=== PATIENT | male | born 1960 | race Caucasian/White ===

== ENCOUNTER 2019-02-11 18:08 | Emergency (ER) | payer OTHER ==
[2019-02-11 18:18] VITALS: BP 125/67; PULSE 67; TEMP 98.1; BMI 22.3
--- NOTE | 2019-02-11 18:18 | PDOC ---
Rapid Medical Evaluation Chief Complaint: Chest Pain Time Seen by Provider: 02/11/19 18:14 Medical Evaluation: 02/11/19 18:16 I have performed a brief in-person evaluation of this patient. The patient presents with a chief complaint of: chest pressure and irregular Heartrate, states stopped taking seraquel and Effexor 2 weeks ago. " ijust want to know if I am having a heart attack" - scheduled for Barium Swallow tomorrow Pertinent physical exam findings: anxious, talkative, I have ordered the following: EKG The patient will proceed to the ED for further evaluation. 02/11/19 18:17 02/11/19 18:18 Discharge Disposition - Diagnosis Chest pain - Discharge Dispostion Condition at time of disposition: Stable - Referrals - Patient Instructions - Post Discharge Activity
[2019-02-11 19:10] LABS: BASO % 1.2 % (0-2.0); EOS % 2.1 % (0-4.5); HEMATOCRIT 38.1 % (35.4-49); HEMOGLOBIN 12.7 GM/dL (11.7-16.9); LYMPH % 22.2 % (8-40); MCH 30.2 pg (25.7-33.7); MCHC 33.3 g/dl (32.0-35.9); MEAN CELL VOLUME 90.7 fl (80-96); MEAN PLT VOLUME 7.3 fl (7.5-11.1); MONO % 7.8 % (3.8-10.2); NEUT % 66.7 % (42.8-82.8); PLATELET COUNT 281 K/MM3 (134-434); RDW 12.9 % (11.9-15.9); WHITE BLOOD COUNT 5.9 K/mm3 (4.0-10.0)
[2019-02-11 19:25] LABS: INR 0.97 (0.83-1.09); PROTHROMBIN TIME (PATIENT) 11.5 SEC (9.7-13.0)
[2019-02-11 19:35] LABS: ALBUMIN 4.2 g/dl (3.4-5.0); BILIRUBIN,TOTAL 0.4 mg/dL (0.2-1); BLOOD UREA NITROGEN 17.3 mg/dL (7-18); CALCIUM 9.6 mg/dL (8.5-10.1); CREATININE 0.9 mg/dL (0.55-1.3); POTASSIUM 4.3 mmol/L (3.5-5.1)
--- NOTE | 2019-02-11 20:09 | PDOC ---
History of Present Illness - General Chief Complaint: Chest Pain Stated Complaint: SENT BY PCP Time Seen by Provider: 02/11/19 18:14 - History of Present Illness Initial Comments: Samuel Sanchez is a 58yo man with a PMH of hiatal hernia, severe GERD symptoms, and anxiety who presents with left chest pain that started this afternoon. he states that he is scheduled for a barium swallow tomorrow and was at his PMD's office this afternoon, where he was told that he was "fine." He walked out to the car and took a drink of soda, and he noticed a pain on his left inferior lateral chest when he moved his arm forward. He says that the pain is "0.6/10" and occurs when he brings his left arm laterally to over to the far right. He describes it as feeling "like a bruise." Mr Sanchez says that he ran back into his PMD's office and had an EKG done, which was reportedly unchanged from previously. He is very concerned that he is having a heart attack, and his PMD sent him to the ED for additional evaluation. His PMD, Dr Medrano, called the ER prior to the pt's arrival and requested that two trops be sent. He is comfortable with the patient being discharged home if his workup is negative. He will fax previous EKG's for comparison and reports that the EKG. Past History - Past Medical History Allergies/Adverse Reactions: Allergies Allergy/AdvReac Type Severity Reaction Status Date / Time No Known Allergies Allergy Verified 02/11/19 20:51 Home Medications: Ambulatory Orders Alprazolam [Xanax] 1 mg PO DAILY 02/11/19 Nicotine Patch [Nicoderm Patch -] 1 patch TD DAILY 02/11/19 Oxycodone HCl [Oxycodone HCl ER] 20 mg PO DAILY 02/11/19 Pantoprazole Sodium [Protonix] 40 mg PO BID 02/11/19 Valacyclovir HCl [Valtrex] 500 mg PO DAILY 02/11/19 COPD: No Psychiatric Problems: Yes Other medical history: ACID REFLUX, ?HIATAL HERNIA - Surgical History Abdominal Surgery: Yes Appendectomy: Yes - Immunization History Immunization Up to Date: No - Suicide/Smoking/Psychosocial Hx Smoking History: Never smoked Have you smoked in the past 12 months: Yes Information on smoking cessation initiated: No Hx Alcohol Use: No Drug/Substance Use Hx: No Review of Systems - Review of Systems Comments:: General: No fevers, no chills, no weight or appetite change, no malaise HEENT: No changes in vision, no changes in hearing, no congestion, no sore throat CV: No chest pain, no palpitations, no LE edema Pulm: No SOB, no cough, no wheezing GI: Frequent nausea/vomiting, no change in bowel habits, no melena : No frequency, no urgency, no dysuria Musc: No back pain, no joint swelling, no recent injury Skin: No rash, no lesions, no erythema Endo: No excessive thirst, no heat/cold intolerance Heme: No unusual bruising or bleeding, no swollen glands Neuro: No syncope, no numbness/tingling, no focal weakness Vasc: No claudication Psych: No recent change in mood, no SI or HI. Significant anxiety *Physical Exam - Vital Signs Last Vital Signs Temp Pulse Resp BP Pulse Ox 98.1 F 67 16 125/67 99 02/11/19 18:15 02/11/19 18:15 02/11/19 18:15 02/11/19 18:15 02/11/19 18:15 - Physical Exam Comments: General: In no acute distress HEENT: PERRL, EOMI, MMM, voice normal Cards: RRR, no murmur appreciated. No reproducible chest wall pain Pulm: Comfortable on room air, clear to auscultation bilaterally Abd: Soft, nontender, nondistended Ext: Atraumatic. No LE edema. ROM intact Vasc: Extremities WWP Skin: Normal color, no rashes or lesions Neuro: A&Ox3, CN grossly intact, normal speech, motor/sensory grossly intact and symmetric Psych: Extremely anxious, tearful Heart Score/ECG Review - History History: Slightly suspicious - Electrocardiogram EKG: Non specific repolarization disturbance - Age Age: 45-65 - Risk Factors Risk Factors Heart Score: Yes Smoking History Based on the list above the patient has:: 1-2 risk factors - Troponin Troponin: </= normal limit - Score Heart Score - Total: 3 - ECG Intrepretation Rhythm: Regular Rhythm - [place]: Normal - [place] Atrial Enlargement: Left Prominent R with upright T in V1 (true posterior SD): No Delta Wave(s) Present: No - QRS Increased Voltage: Precordial Leads Poor R Wave Progression: No Q Wave Present: No - ECG Impressions Normal ECG: No Bradycardia: Yes Tachycardia: Sinus ED Treatment Course - LABORATORY CBC & Chemistry Diagram: 02/11/19 19:00 02/11/19 19:00 - ADDITIONAL ORDERS Additional order review: Laboratory Results 02/11/19 02/11/19 19:00 19:00 PT with INR 11.50 INR 0.97 Sodium 139 Potassium 4.3 Chloride 106 Carbon Dioxide 29 Anion Gap 5 L BUN 17.3 Creatinine 0.9 Est GFR (CKD-EPI)AfAm 107.97 Est GFR (CKD-EPI)NonAf 93.16 Random Glucose 99 Calcium 9.6 Magnesium 2.0 Total Bilirubin 0.4 AST 43 H ALT 59 Alkaline Phosphatase 39 L Creatine Kinase 546 H Troponin I 0.04 Total Protein 7.0 Albumin 4.2 Lipase 106 02/11/19 19:00 RBC 4.20 MCV 90.7 MCHC 33.3 RDW 12.9 MPV 7.3 L Neutrophils % 66.7 Lymphocytes % 22.2 Monocytes % 7.8 Eosinophils % 2.1 Basophils % 1.2 Medical Decision Making - Medical Decision Making 02/11/19 19:54 Samuel Sanchez is a 58yo man with a PMH of hiatal hernia, severe GERD symptoms, and anxiety who presents with nonspecific left lateral chest pain that started this afternoon. He was noted to have EKG changes today; his PMD sent previous EKG's for comparison - Low suspicion for ACS from pt's description of pain, however, EKGs from today as well as faxed EKG from 2011 and 2015 reviewed. All show sinus bradycardia, normal axis, normal intervals with LVH, t-wave inversions in lateral leads. - PMD called by Dr Hahn. Pt has never had a cardiology workup. Cause of EKG changes are unknown - Initial trop sent in RME. CBC, CMP without concerning changes. Trop 0.04 - Plan to call cardiology for recs, may need admission for echo and stress test 02/11/19 21:08 - Discussed EKG's with Dr Worthington, who reviewed the EKG from 2012 and today. She states that the changes are most likely LVH with repolarization abnormalities and that the pt can be seen in clinic - Updated pt regarding results, conversation w/ cardiology. Discussion held with the pt, myself, and Dr Doan. Recommended that he stay in the hospital so that he can be seen by cardiology and likely complete additional testing. Following a lengthy discussion, Mr Sanchez feels that he would rather follow up in clinic. Advised that admission is recommended, and he understands the reasons and risks of going home now, especially as repeat trop has not been sent. Will sign AMA paperwork. Seen with Dr Doan. Donna William PGY2 *DC/Admit/Observation/Transfer Diagnosis at time of Disposition: Chest pain Qualifiers: Chest pain type: unspecified Qualified Code(s): R07.9 - Chest pain, unspecified - Discharge Dispostion Disposition: AGAINST MEDICAL ADVICE Condition at time of disposition: Stable - Referrals Referrals: Pankaj Medrano MD [Primary Care Provider] - Quincy Castellon MD [Staff Physician] - Aide Worthington MD [Staff Physician] - - Patient Instructions Printed Discharge Instructions: DI for Chest Pain Additional Instructions: Discharge Instructions: You were seen in the emergency department with chest pain. Your blood tests were not concerning, but you were found to have changes on your EKG. These changes have never been evaluated by a dust handler. It was recommended that you stay in the hospital for additional testing, but following discussion with the team you declined. Your EKG was discussed with a dust handler. Please call tomorrow morning to schedule an appointment with Dr Castellon or Dr Worthington. You should be seen as soon as possible, ideally tomorrow or Saturday. Do not exercise or lift heavy objects until you are evaluated. Seek immediate care if you have any worsening symptoms, persistent chest pain, difficulty breathing, sweating along with the pain, the pain occurs with exercise, you feel lightheaded, or you have any other medical emergency. - Post Discharge Activity
--- NOTE | 2019-02-11 22:34 | PDOC ---
Documentation entered by Noel Nesbitt SCRIBE, acting as scribe for Rafaela Doan DO. Rafaela Doan DO: This documentation has been prepared by the Laz patel Daniel, SCRIBE, under my direction and personally reviewed by me in its entirety. I confirm that the documentation accurately reflects all work , treatment, procedures, and medical decision making performed by me. Attending Attestation - Resident Resident Name: TabmonikaDonna - ED Attending Attestation I have performed the following: I have examined & evaluated the patient, The case was reviewed & discussed with the resident, I agree w/resident's findings & plan - HPI HPI: 02/11/19 19:58 The patient is a 58 year old male with a past medical history of hiatal hernia, anxiety, and severe GERD here today for evaluation of chest tightness. The patient reports that he saw his PCP today and began to feel chest tightness as he left. He reports that his pain is left sided, sharp, and intermittent. Patient denies headache, lightheadedness. Denies fever, chills. Denies shortness of breath. Denies nausea, vomiting, diarrhea, abdominal pain. PCP: Pankaj Medrano - Physicial Exam PE: 02/11/19 19:59 Agree with resident's physical exam. - Medical Decision Making 02/11/19 22:32 58-year-old male with intermittent chest pains sent by PMD for further evaluation EKG shows extensive and concerning ST segment abnormalities as well as deep T- wave inversions in leads V1 through V4 Largely unchanged from previous stating back to 2011 Patient states he has not been fully evaluated by a sales contractor but believes he has a heart murmur He has been advised stay for serial enzymes and further evaluation which she refuses Case was discussed with cardiology who recommends short-term follow-up Patient will be signing out AGAINST MEDICAL ADVICE, he was specifically made aware that his evaluation was not completed and he is at risk for sudden . He was advised to avoid heavy exercise as well. Patient verbalized understanding. He was alert and oriented 4 able to communicate prior to leaving the emergency department.
--- NOTE | 2019-02-12 15:19 | EKG ---
Test Reason : Blood Pressure : / mmHG Vent. Rate : 054 BPM Atrial Rate : 054 BPM P-R Int : 166 ms QRS Dur : 100 ms QT Int : 448 ms P-R-T Axes : 071 075 007 degrees QTc Int : 424 ms SINUS BRADYCARDIA POSSIBLE LEFT ATRIAL ENLARGEMENT LEFT VENTRICULAR HYPERTROPHY ABNORMAL ECG NO PREVIOUS ECGS AVAILABLE Confirmed by NILAY CUEVA, ZULEIMA ([id number]) on 02/12/2019 3:19:11 PM Referred By: Confirmed By:ZULEIMA PEMBERTON MD
== END 2019-02-11 21:43 | disposition left against medical advice (07) ==
LOC: JER 18:08
DX: R07.9 Chest pain, unspecified (principal); K21.9 Gastro-esophageal reflux disease without esophagitis; F41.9 Anxiety disorder, unspecified
CPT/HCPCS: 36415; 71045-TC-FY; 80053; 82550; 82553; 83690; 83735; 84484; 85025; 85610; 93005; 93010; 99284-25

== ENCOUNTER 2020-09-28 15:14 | Emergency (ER) | payer OTHER ==
[2020-09-28 15:20] VITALS: BP 132/80; PULSE 57; TEMP 98; BMI 21.6
== END 2020-09-28 16:17 | disposition home or self-care (01) ==
LOC: JERFT 15:14
DX: F41.9 Anxiety disorder, unspecified (principal)
CPT/HCPCS: 99283-25

== ENCOUNTER 2020-10-06 17:02 | Emergency (ER) | payer OTHER ==
[2020-10-06 17:09] VITALS: BP 122/64; PULSE 60; TEMP 98; BMI 19.5
[2020-10-06] MEDS ORDERED: LIDOCAINE VISCOUS 2% ORAL/TOP 20 ML UNIT-DOSE CUP MM ONE (17:41)
[2020-10-06] MEDS ORDERED: LIDOCAINE VISCOUS 2% ORAL/TOP 20 ML UNIT-DOSE CUP ONE (17:46)
== END 2020-10-06 18:45 | disposition home or self-care (01) ==
LOC: JER 17:02
DX: R13.10 Dysphagia, unspecified (principal)
CPT/HCPCS: 70360-TC-FY; 99283-25

== ENCOUNTER 2020-10-20 14:07 | Emergency (ER) | payer OTHER ==
[2020-10-20] MEDS ORDERED: IBUPROFEN 600 MG TABLET (FP) PO ONE ×2 (14:25→14:44)
[2020-10-20 14:33] VITALS: BP 144/82; PULSE 110; TEMP 98.6; BMI 20.9
== END 2020-10-20 15:03 | disposition home or self-care (01) ==
LOC: JER 14:07
DX: R50.83 Postvaccination fever (principal)
CPT/HCPCS: 99283-25

== ENCOUNTER 2020-10-22 15:51 | Emergency (ER) | payer OTHER ==
[2020-10-22 16:02] VITALS: BP 143/75; PULSE 66; TEMP 98.1; BMI 20.9
== END 2020-10-22 17:20 | disposition home or self-care (01) ==
LOC: JER 15:51 → JERFT 15:51
DX: R50.9 Fever, unspecified (principal)
CPT/HCPCS: 99282-25

== ENCOUNTER 2020-10-30 11:23 | Emergency (ER) | payer OTHER ==
[2020-10-30 11:59] VITALS: BP 117/71; PULSE 70; TEMP 98.1; BMI 20.9
== END 2020-10-30 12:23 | disposition home or self-care (01) ==
LOC: JER 11:23
DX: R06.02 Shortness of breath (principal)
CPT/HCPCS: 99283-25

== ENCOUNTER 2020-10-31 14:11 | Emergency (ER) | payer OTHER ==
[2020-10-31 14:30] VITALS: BP 115/73; PULSE 74; TEMP 98.5; BMI 20.9
== END 2020-10-31 15:24 | disposition home or self-care (01) ==
LOC: JERFT 14:11 → JER 14:11
DX: F41.9 Anxiety disorder, unspecified (principal)
CPT/HCPCS: 99282-25

== ENCOUNTER 2020-11-01 13:53 | Emergency (ER) | payer OTHER ==
[2020-11-01 14:08] VITALS: BP 128/85; PULSE 59; TEMP 98.2; BMI 20.9
== END 2020-11-01 14:44 | disposition home or self-care (01) ==
LOC: JERFT 13:53
DX: F41.9 Anxiety disorder, unspecified (principal)
CPT/HCPCS: 99283-25

== ENCOUNTER 2020-11-02 22:07 | Emergency (ER) | payer OTHER ==
[2020-11-02 22:17] VITALS: BP 143/86; PULSE 76; TEMP 97.9; BMI 20.9
== END 2020-11-02 22:30 | disposition home or self-care (01) ==
LOC: JER 22:07
DX: T25.121A Burn of first degree of right foot, initial encounter (principal)
CPT/HCPCS: 99284-25

== ENCOUNTER 2020-11-09 14:40 | Emergency (ER) | payer OTHER ==
[2020-11-09 15:11] VITALS: BP 133/78; PULSE 54; TEMP 98.3; BMI 22.0
[2020-11-09] MEDS ORDERED: BACITRACIN 15 GM TUBE TOPICAL OINTMENT ONE (15:15)
== END 2020-11-09 16:50 | disposition home or self-care (01) ==
LOC: JERFT 14:40
DX: T25.122A Burn of first degree of left foot, initial encounter (principal)
CPT/HCPCS: 99283-25

== ENCOUNTER 2020-12-10 16:17 | Emergency (ER) | payer OTHER ==
[2020-12-10 16:29] VITALS: BP 139/78; PULSE 64; BMI 20.7
== END 2020-12-10 17:37 | disposition home or self-care (01) ==
LOC: JERFT 16:17
DX: R06.02 Shortness of breath (principal); F41.9 Anxiety disorder, unspecified
CPT/HCPCS: 71046-TC-FY; 99283-25

== ENCOUNTER 2020-12-11 13:01 | Emergency (ER) | payer OTHER ==
[2020-12-11 13:12] VITALS: BP 128/72; PULSE 75; TEMP 98.1; BMI 20.9
[2020-12-11] MEDS ORDERED: ALBUTEROL SO4 HFA INHALER IH ONE ×2 (13:58→13:59)
== END 2020-12-11 14:57 | disposition home or self-care (01) ==
LOC: JERFT 13:01
PROC: 3E0F7GC Introduction of Other Therapeutic Substance into Respiratory Tract, Via Natural or Artificial Opening (ICD-10-PCS; principal; 2020-12-11)
DX: F41.9 Anxiety disorder, unspecified (principal); R06.02 Shortness of breath
CPT/HCPCS: 99284-25

== ENCOUNTER 2020-12-14 14:32 | Emergency (ER) | payer OTHER ==
[2020-12-14 15:02] VITALS: BP 144/87; PULSE 72; TEMP 98.1; BMI 21.6
== END 2020-12-14 15:55 | disposition home or self-care (01) ==
LOC: JERFT 14:32
DX: R05 Cough (principal); R06.02 Shortness of breath; F41.9 Anxiety disorder, unspecified
CPT/HCPCS: 99281-25

== ENCOUNTER 2021-01-15 15:42 | Emergency (ER) | payer OTHER ==
[2021-01-15 16:05] VITALS: BP 130/78; PULSE 74; TEMP 98.2; BMI 21.6
[2021-01-15] MEDS ORDERED: POLYETHYLENE GLYCOL 3350 119 GM BTL PO ONE (16:50)
[2021-01-15] MEDS ORDERED: LACTULOSE 20 GM/30 ML UDC (FOR ORAL USE ONLY) PO ONE (16:50)
[2021-01-15] MEDS ORDERED: LACTULOSE 20 GM/30 ML UDC (FOR ORAL USE ONLY) ONE (16:51)
== END 2021-01-15 18:26 | disposition home or self-care (01) ==
LOC: JER 15:42
DX: K59.00 Constipation, unspecified (principal)
CPT/HCPCS: 74019-TC-FY; 99283-25

== ENCOUNTER 2021-03-03 14:45 | Emergency (ER) | payer OTHER ==
[2021-03-03 15:07] VITALS: BP 148/74; PULSE 69; TEMP 98.3; BMI 21.6
== END 2021-03-03 15:59 | disposition home or self-care (01) ==
LOC: JERFT 14:45 → JER 14:45 → JERFT 15:59
DX: F41.9 Anxiety disorder, unspecified (principal); R06.02 Shortness of breath
CPT/HCPCS: 71046-TC-FY; 99283-25

== ENCOUNTER 2021-03-12 22:31 | Emergency (ER) | payer OTHER ==
[2021-03-12 22:43] VITALS: BP 130/82; PULSE 68; TEMP 98.1; BMI 21.6
== END 2021-03-12 23:27 | disposition home or self-care (01) ==
LOC: JER 22:31
DX: F41.9 Anxiety disorder, unspecified (principal)
CPT/HCPCS: 99281-25

== ENCOUNTER 2021-04-03 14:02 | Emergency (ER) | payer OTHER ==
[2021-04-03 14:23] VITALS: BP 142/58; PULSE 81; TEMP 98.2; BMI 21.6
[2021-04-03] MEDS ORDERED: LIDOCAINE 5% TOPICAL PATCH TP ONE (15:57)
[2021-04-03] MEDS ORDERED: LIDOCAINE 5% TOPICAL PATCH ONE (15:58)
== END 2021-04-03 16:01 | disposition home or self-care (01) ==
LOC: JERFT 14:02
DX: S06.0X0A Concussion without loss of consciousness, initial encounter (principal); W22.8XXA Striking against or struck by other objects, initial encounter; Y92.9 Unspecified place or not applicable
CPT/HCPCS: 70450-TC; 72125-TC; 99284-25

== ENCOUNTER 2021-04-21 22:41 | Emergency (ER) | payer OTHER ==
[2021-04-21 22:46] VITALS: BP 151/87; PULSE 95; TEMP 98; BMI 21.6
== END 2021-04-21 23:43 | disposition home or self-care (01) ==
LOC: JERFT 22:41
DX: T25.021A Burn of unspecified degree of right foot, initial encounter (principal); S91.331A Puncture wound without foreign body, right foot, initial encounter; X11.8XXA Contact with other hot tap-water, initial encounter; W25.XXXA Contact with sharp glass, initial encounter
CPT/HCPCS: 99281-25

== ENCOUNTER 2021-05-04 13:51 | Emergency (ER) | payer OTHER ==
[2021-05-04 14:36] VITALS: BP 132/68; PULSE 61; TEMP 97.9; BMI 21.6
== END 2021-05-04 17:54 | disposition home or self-care (01) ==
LOC: JERFT 13:51
DX: F41.9 Anxiety disorder, unspecified (principal)
CPT/HCPCS: 71046-TC-FY; 74018-TC-FY; 99284-25

== ENCOUNTER 2021-05-13 14:28 | Emergency (ER) | payer OTHER ==
[2021-05-13 14:59] VITALS: BP 133/82; PULSE 60; TEMP 98.1; BMI 21.6
== END 2021-05-13 16:38 | disposition home or self-care (01) ==
LOC: JERFT 14:28 → JER 14:28 → JERFT 16:38
DX: R09.81 Nasal congestion (principal); F45.21 Hypochondriasis
CPT/HCPCS: 99281-25

== ENCOUNTER 2021-06-07 13:40 | Emergency (ER) | payer OTHER ==
[2021-06-07 14:09] VITALS: BP 138/78; PULSE 84; TEMP 98.1; BMI 18.1
== END 2021-06-07 14:47 | disposition home or self-care (01) ==
LOC: JERFT 13:40
DX: S92.502A Displaced unspecified fracture of left lesser toe(s), initial encounter for closed fracture (principal); W20.8XXA Other cause of strike by thrown, projected or falling object, initial encounter
CPT/HCPCS: 73630-TC-LT; 99283-25

== ENCOUNTER 2021-06-15 17:47 | Emergency (ER) | payer OTHER ==
[2021-06-15 18:08] VITALS: BP 123/77; PULSE 62; TEMP 98.1; BMI 21.6
== END 2021-06-15 19:30 | disposition home or self-care (01) ==
LOC: JER 17:47
DX: F45.21 Hypochondriasis (principal)
CPT/HCPCS: 99281-25

== ENCOUNTER 2021-07-14 12:35 | Emergency (ER) | payer OTHER ==
[2021-07-14 13:29] VITALS: BP 121/72; PULSE 66; TEMP 97.6; BMI 22.3
== END 2021-07-14 17:22 | disposition home or self-care (01) ==
LOC: JERFT 12:35
DX: M25.562 Pain in left knee (principal); W01.0XXA Fall on same level from slipping, tripping and stumbling without subsequent striking against object, initial encounter; W22.8XXA Striking against or struck by other objects, initial encounter
CPT/HCPCS: 70100-TC-FY; 73562-TC-LT-FY; 99284-25; C9803; U0003; U0005

== ENCOUNTER 2021-07-27 11:30 | Emergency (ER) | payer OTHER ==
[2021-07-27 11:36] VITALS: BP 125/80; PULSE 85; TEMP 97.5; BMI 22.3
[2021-07-27] MEDS ORDERED: DEXAMETHASONE LIQUID 0.5 MG/5 ML PO ONE (12:37)
[2021-07-27] MEDS ORDERED: DEXAMETHASONE SOD PHOSPHATE 10 MG/1 ML VIAL ONE (12:56)
[2021-07-28 15:12] LABS: SARS-CoV-2 NAA Not Detected (Not Detected)
== END 2021-07-27 13:07 | disposition home or self-care (01) ==
LOC: JER 11:30
DX: J02.9 Acute pharyngitis, unspecified (principal)
CPT/HCPCS: 87070; 87804; 87807; 99283-25; C9803; U0003; U0005

== ENCOUNTER 2021-08-11 16:32 | Emergency (ER) | payer OTHER ==
[2021-08-11 16:40] VITALS: BP 120/66; PULSE 59; TEMP 97.3; BMI 22.3
[2021-08-11] MEDS ORDERED: LORazepam 2 MG TABLET PO ONE (17:11)
[2021-08-11] MEDS ORDERED: LORazepam 2 MG/ML SDV VIAL IVPUSH ONE (17:15)
[2021-08-11 17:52] LABS: BASO % 0.8 % (0-2.0); HEMATOCRIT 35.7 % (35.4-49); MCH 29.2 pg (25.7-33.7); MCHC 33.5 g/dl (32.0-35.9); MEAN CELL VOLUME 87.2 fl (80-96); MEAN PLT VOLUME 7.5 fl (7.5-11.1); MONO % 9.6 % (3.8-10.2); NEUT % 60.6 % (42.8-82.8); PLATELET COUNT 204 10^3/uL (134-434); RBC 4.09 M/mm3 (4.00-5.60); RDW 14.2 % (11.9-15.9)
[2021-08-11 18:12] LABS: CHLORIDE 107 mmol/L (98-107); SODIUM 142 mmol/L (136-145)
[2021-08-11 18:14] LABS: CALCIUM 8.7 mg/dL (8.5-10.1)
[2021-08-11 18:15] LABS: ALBUMIN 3.6 g/dl (3.4-5.0); ANION GAP 7 MMOL/L (8-16); BLOOD UREA NITROGEN 5.5 mg/dL (7-18); CO2 29 mmol/L (21-32); GLUCOSE,RANDOM 92 mg/dL (74-106)
[2021-08-11 18:18] LABS: CREATININE 0.8 mg/dL (0.55-1.3); SGOT/AST 20 U/L (15-37); SGPT/ALT 29 U/L (13-61)
[2021-08-11 18:20] LABS: BILIRUBIN,TOTAL 0.2 mg/dL (0.2-1); TOT PROT 6.1 g/dl (6.4-8.2)
[2021-08-11 18:21] LABS: ALK PHOS 53 U/L (45-117)
== END 2021-08-11 19:12 | disposition home or self-care (01) ==
LOC: JER 16:32
PROC: 3E033NZ Introduction of Analgesics, Hypnotics, Sedatives into Peripheral Vein, Percutaneous Approach (ICD-10-PCS; principal; 2021-08-11)
DX: R07.9 Chest pain, unspecified (principal)
CPT/HCPCS: 36415; 71045-TC-FY; 80053; 82550; 82553; 84484; 85025; 93005; 93010; 99284-25

== ENCOUNTER 2021-12-05 15:24 | Emergency (ER) | payer OTHER ==
[2021-12-05 15:53] VITALS: BP 126/76; PULSE 86; TEMP 98.4; BMI 20.5
[2021-12-05] MEDS ORDERED: ACETAMINOPHEN 1000 MG/100 ML BAG IVPB ONE (16:56)
[2021-12-05] MEDS ORDERED: ONDANSETRON 4 MG/2 ML VIAL IVPUSH ONE (16:56)
[2021-12-05] MEDS ORDERED: SODIUM CHLORIDE 1,000 ML IV STA (16:56)
[2021-12-05] MEDS ORDERED: LORazepam 2 MG/ML SDV VIAL IVPUSH ONE (16:57)
[2021-12-05] MEDS ORDERED: ONDANSETRON 4 MG/2 ML VIAL ONE (17:07)
[2021-12-05] MEDS ORDERED: ACETAMINOPHEN INJECTION 100 ML IVPB ONE (17:07)
[2021-12-05 17:17] LABS: URINE APPEARANCE CLEAR; URINE BILIRUBIN NEGATIVE (NEGATIVE); URINE COLOR YELLOW; URINE GLUCOSE (UA) NEGATIVE (NEGATIVE); URINE KETONE NEGATIVE (NEGATIVE); URINE LEUK ESTERASE NEGATIVE (NEGATIVE); URINE NITRITE NEGATIVE (NEGATIVE); URINE PROTEIN NEGATIVE (NEGATIVE); URINE UROBILINOGEN 0.2 mg/dL (0.2-1.0)
[2021-12-05 17:35] LABS: BASO % 0.7 % (0-2.0); EOS % 1.4 % (0-4.5); HEMATOCRIT 38.3 % (35.4-49); HEMOGLOBIN 12.3 GM/dL (11.7-16.9); LYMPH % 28.2 % (8-40); MCH 23.7 pg (25.7-33.7); MCHC 32.1 g/dl (32.0-35.9); MEAN CELL VOLUME 73.9 fl (80-96); MEAN PLT VOLUME 8.2 fl (7.5-11.1); MONO % 5.7 % (3.8-10.2); PLATELET COUNT 278 10^3/uL (134-434); RBC 5.18 M/mm3 (4.00-5.60); RDW 15.2 % (11.9-15.9)
[2021-12-05 17:37] LABS: ALBUMIN 3.5 g/dl (3.4-5.0); BLOOD UREA NITROGEN 7.2 mg/dL (7-18)
[2021-12-05 17:40] LABS: CREATININE 0.6 mg/dL (0.55-1.3)
[2021-12-05 17:41] LABS: TOT PROT 6.7 g/dl (6.4-8.2)
[2021-12-05 17:42] LABS: BILIRUBIN,TOTAL 0.4 mg/dL (0.2-1)
[2021-12-05 17:54] LABS: WHITE BLOOD COUNT 9.8 K/mm3 (4.0-10.0)
[2021-12-05 18:08] LABS: BASO % 0.6 % (0-2.0); EOS % 2.1 % (0-4.5); HEMATOCRIT 36.3 % (35.4-49); HEMOGLOBIN 12.1 GM/dL (11.7-16.9); LYMPH % 10.4 % (8-40); MCH 29.5 pg (25.7-33.7); MCHC 33.4 g/dl (32.0-35.9); MEAN CELL VOLUME 88.3 fl (80-96); MONO % 5.6 % (3.8-10.2); NEUT % 81.3 % (42.8-82.8); PLATELET COUNT 229 10^3/uL (134-434); RBC 4.11 M/mm3 (4.00-5.60); RDW 13.7 % (11.9-15.9)
[2021-12-05 18:45] LABS: ALBUMIN 3.7 g/dl (3.4-5.0); BLOOD UREA NITROGEN 4.2 mg/dL (7-18); CALCIUM 8.9 mg/dL (8.5-10.1)
[2021-12-05 18:47] LABS: CREATININE 0.8 mg/dL (0.55-1.3)
[2021-12-05 18:49] LABS: BILIRUBIN,TOTAL 0.2 mg/dL (0.2-1); TOT PROT 6.2 g/dl (6.4-8.2)
== END 2021-12-05 19:29 | disposition left against medical advice (07) ==
LOC: JER 15:24
PROC: 3E033GC Introduction of Other Therapeutic Substance into Peripheral Vein, Percutaneous Approach (ICD-10-PCS; principal; 2021-12-05)
DX: R10.84 Generalized abdominal pain (principal)
CPT/HCPCS: 36415; 80053; 81003; 83690; 85025; 87086; 96361; 96374; 99284-25

== ENCOUNTER 2021-12-10 20:51 | Emergency (ER) | payer OTHER ==
[2021-12-10 21:01] VITALS: BP 137/82; PULSE 55; TEMP 98.3; BMI 24.3
== END 2021-12-10 21:36 | disposition home or self-care (01) ==
LOC: JER 20:51
DX: F41.9 Anxiety disorder, unspecified (principal)
CPT/HCPCS: 99283-25

== ENCOUNTER 2022-01-02 17:09 | Emergency (ER) | payer OTHER ==
[2022-01-02 17:46] VITALS: BP 122/69; PULSE 51; TEMP 98.2; BMI 23.0
== END 2022-01-02 18:04 | disposition home or self-care (01) ==
LOC: JERFT 17:09 → JER 17:09 → JERFT 18:04
DX: R09.89 Other specified symptoms and signs involving the circulatory and respiratory systems (principal)
CPT/HCPCS: 70360-TC-FY; 99283-25

== ENCOUNTER 2022-02-27 15:59 | Emergency (ER) | payer OTHER ==
[2022-02-27 16:38] VITALS: BP 117/65; PULSE 69; RESP 20; TEMP 98.5; BMI 20.9
== END 2022-02-27 18:54 | disposition home or self-care (01) ==
LOC: JER 15:59
DX: U07.1 COVID-19 (principal)
CPT/HCPCS: 71046-TC-FY; 99285-25

== ENCOUNTER 2022-04-23 16:01 | Emergency (ER) | payer OTHER ==
[2022-04-23 16:07] VITALS: BP 126/80; PULSE 69; RESP 18; TEMP 97.5; BMI 18.1
[2022-04-23] MEDS ORDERED: LIDOCAINE 5% TOPICAL PATCH ONE ×2 (17:14→17:30)
[2022-04-23] MEDS ORDERED: LIDOCAINE 5% TOPICAL PATCH TP ONE (17:14)
[2022-04-23] MEDS ORDERED: ACETAMINOPHEN 325 MG TABLET (FP) ONE (17:31)
[2022-04-23] MEDS ORDERED: LIDOCAINE PATCH REMOVAL MC SCH (22:00)
== END 2022-04-23 17:36 | disposition home or self-care (01) ==
LOC: JERFT 16:01
DX: S99.921A Unspecified injury of right foot, initial encounter (principal); M54.50 Low back pain, unspecified; W20.8XXA Other cause of strike by thrown, projected or falling object, initial encounter
CPT/HCPCS: 73660-TC-FY; 99283-25

== ENCOUNTER 2022-06-02 13:57 | Emergency (ER) | payer OTHER ==
[2022-06-02 15:08] VITALS: BP 117/70; PULSE 82; RESP 17; TEMP 98.5; BMI 23.0
== END 2022-06-02 16:29 | disposition home or self-care (01) ==
LOC: JER 13:57
DX: L72.3 Sebaceous cyst (principal)
CPT/HCPCS: 99281-25

== ENCOUNTER 2022-06-13 16:29 | Emergency (ER) | payer OTHER ==
[2022-06-13 16:41] VITALS: BP 125/81; PULSE 85; RESP 18; TEMP 98.1; BMI 23.0
[2022-06-13] MEDS ORDERED: ALPRAZolam 1 MG TABLET PO PRN (17:26)
[2022-06-13] MEDS ORDERED: SODIUM CHLORIDE 1,000 ML IV STA (17:26)
[2022-06-13] MEDS ORDERED: oxyCODONE HCL 5 MG TABLET PO ONE (17:27)
[2022-06-13] MEDS ORDERED: POLYETHYLENE GLYCOL (HEALTHYLAX) 3350 17 GM PACKET PO ONE (17:30)
[2022-06-13] MEDS ORDERED: ALPRAZolam 1 MG TABLET ONE (18:17)
[2022-06-13] MEDS ORDERED: oxyCODONE HCL 5 MG TABLET ONE (18:18)
[2022-06-13 19:40] LABS: BASO % 0.8 % (0-2.0); EOS % 1.5 % (0-4.5); HEMATOCRIT 34.6 % (35.4-49); HEMOGLOBIN 11.5 GM/dL (11.7-16.9); LYMPH % 21.2 % (8-40); MCH 28.8 pg (25.7-33.7); MCHC 33.2 g/dl (32.0-35.9); MEAN CELL VOLUME 86.5 fl (80-96); MEAN PLT VOLUME 7.9 fl (7.5-11.1); MONO % 9.4 % (3.8-10.2); NEUT % 67.1 % (42.8-82.8); PLATELET COUNT 224 10^3/uL (134-434); RDW 14.9 % (11.9-15.9); WHITE BLOOD COUNT 6.7 K/mm3 (4.0-10.0)
[2022-06-13 19:45] LABS: EPI CELLS 3 /uL (0-25.1); HYALINE CASTS 1 /uL (0-3.1); URINE APPEARANCE CLEAR; URINE BACTERIA 0 /uL (0-1359); URINE BILIRUBIN NEGATIVE (NEGATIVE); URINE COLOR YELLOW; URINE GLUCOSE (UA) NEGATIVE (NEGATIVE); URINE KETONE TRACE (NEGATIVE); URINE LEUK ESTERASE TRACE (NEGATIVE); URINE NITRITE NEGATIVE (NEGATIVE); URINE PROTEIN NEGATIVE (NEGATIVE); URINE RBC 10 /uL (0-23.9); URINE UROBILINOGEN 0.2 mg/dL (0.2-1.0); URINE WBC 11 /uL (0-25.8)
[2022-06-13 19:56] LABS: ALBUMIN 3.6 g/dl (3.4-5.0); BLOOD UREA NITROGEN 5.6 mg/dL (7-18); CALCIUM 8.5 mg/dL (8.5-10.1)
[2022-06-13 19:59] LABS: CREATININE 0.9 mg/dL (0.55-1.3)
[2022-06-13 20:01] LABS: BILIRUBIN,TOTAL 0.3 mg/dL (0.2-1); TOT PROT 6.2 g/dl (6.4-8.2)
[2022-06-13] MEDS ORDERED: SENNOSIDES 8.6MG TABLET (FP) PO SCH (22:00)
== END 2022-06-13 21:38 | disposition home or self-care (01) ==
LOC: JER 16:29
PROC: 3E0337Z Introduction of Electrolytic and Water Balance Substance into Peripheral Vein, Percutaneous Approach (ICD-10-PCS; principal; 2022-06-13)
DX: R00.2 Palpitations (principal)
CPT/HCPCS: 36415; 76857; 80053; 81003; 84484; 85025; 87086; 93005; 93010; 99284-25

== ENCOUNTER 2022-06-18 14:02 | Emergency (ER) | payer OTHER ==
[2022-06-18 14:56] VITALS: BP 130/79; PULSE 56; RESP 16; TEMP 97.9; BMI 23.0
[2022-06-18] MEDS ORDERED: LORazepam 1 MG TABLET PO ONE (17:30)
[2022-06-18] MEDS ORDERED: diazePAM CARPU-JECT 10 MG/2 ML DISP.SYRIN IVPUSH ONE (17:37)
[2022-06-18] MEDS ORDERED: diazePAM CARPU-JECT 10 MG/2 ML DISP.SYRIN ONE (18:29)
[2022-06-18 19:32] LABS: HEMATOCRIT 38.7 % (35.4-49); HEMOGLOBIN 12.6 GM/dL (11.7-16.9); MCH 28.1 pg (25.7-33.7); MCHC 32.6 g/dl (32.0-35.9); MEAN CELL VOLUME 86.3 fl (80-96); MEAN PLT VOLUME 8.2 fl (7.5-11.1); PLATELET COUNT 254 10^3/uL (134-434); RBC 4.49 M/mm3 (4.00-5.60); RDW 14.2 % (11.9-15.9); WHITE BLOOD COUNT 4.9 K/mm3 (4.0-10.0)
[2022-06-18 19:55] LABS: CALCIUM 9.3 mg/dL (8.5-10.1)
[2022-06-18 19:56] LABS: BLOOD UREA NITROGEN 4.7 mg/dL (7-18)
[2022-06-18 19:58] LABS: CREATININE 0.8 mg/dL (0.55-1.3)
[2022-06-18 20:00] LABS: BILIRUBIN,TOTAL 0.6 mg/dL (0.2-1); TOT PROT 7.4 g/dl (6.4-8.2)
[2022-06-18 20:04] LABS: ALBUMIN 4.4 g/dl (3.4-5.0)
[2022-06-18] MEDS ORDERED: DOCUSATE SODIUM 100 MG CAPSULE (FP) PO ONE ×2 (20:21→20:25)
== END 2022-06-18 20:37 | disposition home or self-care (01) ==
LOC: JER 14:02
PROC: 3E033NZ Introduction of Analgesics, Hypnotics, Sedatives into Peripheral Vein, Percutaneous Approach (ICD-10-PCS; principal; 2022-06-18)
DX: F41.9 Anxiety disorder, unspecified (principal); K59.00 Constipation, unspecified
CPT/HCPCS: 36415; 74176-TC; 80053; 82272; 83690; 85027; 99284-25

== ENCOUNTER 2022-06-26 14:43 | Emergency (ER) | payer OTHER ==
[2022-06-26 15:02] VITALS: BP 113/76; PULSE 81; RESP 20; TEMP 98; BMI 23.0
[2022-06-26] MEDS ORDERED: Methylnaltrexone Bromide 12 MG/0.6 ML KIT SQ ONE (15:29)
== END 2022-06-26 16:55 | disposition home or self-care (01) ==
LOC: FER 14:43
DX: S09.90XA Unspecified injury of head, initial encounter (principal); W18.2XXA Fall in (into) shower or empty bathtub, initial encounter
CPT/HCPCS: 70450-TC; 72125-TC; 99284-25

== ENCOUNTER 2022-07-21 15:45 | Emergency (ER) | payer OTHER ==
[2022-07-21 15:58] VITALS: BP 134/85; PULSE 74; RESP 18; TEMP 97.6; BMI 23.0
[2022-07-21] MEDS ORDERED: Methylnaltrexone Bromide 12 MG/0.6 ML KIT SQ ONE (16:22)
[2022-07-21] MEDS ORDERED: LACTATED RINGERS SOLUTION 1000 ML INFUS.BAG IV ONE (16:30)
[2022-07-21] MEDS ORDERED: POLYETHYLENE GLYCOL (HEALTHYLAX) 3350 17 GM PACKET PO ONE (16:45)
[2022-07-21] MEDS ORDERED: POLYETHYLENE GLYCOL (HEALTHYLAX) 3350 17 GM PACKET ONE (16:58)
[2022-07-21] MEDS ORDERED: SIMETHICONE 40 MG/0.6 ML BOTTLE PO ONE (17:08)
[2022-07-21 17:21] LABS: BASO % 1.1 % (0-2.0); EOS % 2.2 % (0-4.5); HEMATOCRIT 35.2 % (35.4-49); HEMOGLOBIN 11.3 GM/dL (11.7-16.9); LYMPH % 16.5 % (8-40); MCH 28.3 pg (25.7-33.7); MCHC 32.2 g/dl (32.0-35.9); MEAN CELL VOLUME 87.8 fl (80-96); MEAN PLT VOLUME 7.4 fl (7.5-11.1); MONO % 8.7 % (3.8-10.2); NEUT % 71.5 % (42.8-82.8); PLATELET COUNT 246 10^3/uL (134-434); RDW 14.4 % (11.9-15.9); WHITE BLOOD COUNT 5.4 K/mm3 (4.0-10.0)
[2022-07-21 17:40] LABS: ALBUMIN 3.4 g/dl (3.4-5.0); CALCIUM 8.9 mg/dL (8.5-10.1)
[2022-07-21 17:41] LABS: BLOOD UREA NITROGEN 9.5 mg/dL (7-18)
[2022-07-21 17:43] LABS: CREATININE 0.7 mg/dL (0.55-1.3)
[2022-07-21 17:45] LABS: BILIRUBIN,TOTAL 0.2 mg/dL (0.2-1); TOT PROT 6.1 g/dl (6.4-8.2)
== END 2022-07-21 18:07 | disposition home or self-care (01) ==
LOC: JER 15:45
DX: R10.31 Right lower quadrant pain (principal); R10.32 Left lower quadrant pain; F41.9 Anxiety disorder, unspecified
CPT/HCPCS: 36415; 74019-TC-FY; 80053; 83690; 85025; 99284-25

== ENCOUNTER 2022-07-22 17:38 | Emergency (ER) | payer OTHER ==
[2022-07-22 17:51] VITALS: BP 128/78; PULSE 78; RESP 18; TEMP 97.8; BMI 23.0
[2022-07-22] MEDS ORDERED: ALPRAZolam 1 MG TABLET PO PRN (19:37)
[2022-07-22] MEDS ORDERED: POLYETHYLENE GLYCOL (HEALTHYLAX) 3350 17 GM PACKET PO ONE (19:45)
[2022-07-22] MEDS ORDERED: ALPRAZolam 1 MG TABLET ONE (19:49)
[2022-07-22] MEDS ORDERED: ALPRAZolam 1 MG TABLET PO ONE (19:49)
[2022-07-22] MEDS ORDERED: POLYETHYLENE GLYCOL (HEALTHYLAX) 3350 17 GM PACKET ONE (19:49)
== END 2022-07-22 20:30 | disposition home or self-care (01) ==
LOC: JER 17:38
DX: R41.9 Unspecified symptoms and signs involving cognitive functions and awareness (principal); K59.01 Slow transit constipation
CPT/HCPCS: 93005; 93010; 99283-25

== ENCOUNTER 2022-07-28 16:55 | Emergency (ER) | payer OTHER, BC ==
[2022-07-28 17:26] VITALS: BP 123/83; PULSE 62; RESP 20; TEMP 97.8; BMI 23.0
[2022-07-28] MEDS ORDERED: ONDANSETRON 4 MG/2 ML VIAL IVPUSH ONE (18:36)
[2022-07-28] MEDS ORDERED: ACETAMINOPHEN 1000 MG/100 ML BAG IVPB ONE (18:36)
[2022-07-28] MEDS ORDERED: SODIUM CHLORIDE 1,000 ML IV STA (18:36)
[2022-07-28] MEDS ORDERED: LORazepam 2 MG/ML SDV VIAL IVPB ONE (18:36)
[2022-07-28] MEDS ORDERED: ACETAMINOPHEN INJECTION 100 ML IVPB ONE (18:39)
[2022-07-28] MEDS ORDERED: ONDANSETRON 4 MG/2 ML VIAL ONE (18:40)
[2022-07-28 19:17] LABS: BASO % 1.2 % (0-2.0); EOS % 1.8 % (0-4.5); HEMATOCRIT 34.4 % (35.4-49); HEMOGLOBIN 11.1 GM/dL (11.7-16.9); MCHC 32.3 g/dl (32.0-35.9); MEAN CELL VOLUME 86.7 fl (80-96); MEAN PLT VOLUME 7.1 fl (7.5-11.1); MONO % 8.4 % (3.8-10.2); NEUT % 63.6 % (42.8-82.8); PLATELET COUNT 262 10^3/uL (134-434); RBC 3.96 M/mm3 (4.00-5.60); WHITE BLOOD COUNT 4.6 K/mm3 (4.0-10.0)
[2022-07-28 19:38] LABS: CALCIUM 8.9 mg/dL (8.5-10.1)
[2022-07-28 19:39] LABS: ALBUMIN 3.4 g/dl (3.4-5.0); BLOOD UREA NITROGEN 7.1 mg/dL (7-18)
[2022-07-28 19:42] LABS: CREATININE 0.8 mg/dL (0.55-1.3)
[2022-07-28 19:43] LABS: BILIRUBIN,TOTAL 0.3 mg/dL (0.2-1); TOT PROT 6.1 g/dl (6.4-8.2)
[2022-07-28] MEDS ORDERED: ALPRAZolam 0.25 MG TABLET PO ONE (20:22)
[2022-07-28] MEDS ORDERED: ALPRAZolam 1 MG TABLET ONE (20:24)
[2022-07-28] MEDS ORDERED: ACETAMINOPHEN 500 MG TABLET (FP) PO ONE (21:40)
[2022-07-28] MEDS ORDERED: ONDANSETRON *ODT* 4 MG TABLET SL ONE (21:40)
[2022-07-28] MEDS ORDERED: ONDANSETRON *ODT* 4 MG TABLET ONE (21:41)
[2022-07-28] MEDS ORDERED: ACETAMINOPHEN 325 MG TABLET (FP) ONE (21:41)
[2022-07-28] MEDS ORDERED: POLYETHYLENE GLYCOL (HEALTHYLAX) 3350 17 GM PACKET PO ONE (21:45)
[2022-07-28] MEDS ORDERED: POLYETHYLENE GLYCOL (HEALTHYLAX) 3350 17 GM PACKET ONE (21:52)
== END 2022-07-28 22:58 | disposition home or self-care (01) ==
LOC: JER 16:55
PROC: 3E0337Z Introduction of Electrolytic and Water Balance Substance into Peripheral Vein, Percutaneous Approach (ICD-10-PCS; principal; 2022-07-28)
DX: K52.9 Noninfective gastroenteritis and colitis, unspecified (principal)
CPT/HCPCS: 36415; 74177-TC; 80053; 83690; 85025; 99285-25; Q9967

== ENCOUNTER 2022-07-31 00:11 | Emergency (ER) | payer BC, OTHER ==
[2022-07-31 00:23] VITALS: BP 139/90; PULSE 55; RESP 17; TEMP 98.1; BMI 23.0
== END 2022-07-31 02:13 | disposition home or self-care (01) ==
LOC: FER 00:11
DX: F41.9 Anxiety disorder, unspecified (principal)
CPT/HCPCS: 74018-TC-FY; 99283-25

== ENCOUNTER 2022-08-01 20:55 | Emergency (ER) | payer BC ==
[2022-08-01 21:04] VITALS: BP 124/84; PULSE 65; RESP 17; TEMP 97.8
== END 2022-08-01 22:31 | disposition home or self-care (01) ==
LOC: JERFT 20:55
DX: F41.9 Anxiety disorder, unspecified (principal)
CPT/HCPCS: 99282-25

== ENCOUNTER 2022-08-06 20:32 | Emergency (ER) | payer BC ==
[2022-08-06 20:44] VITALS: BP 136/86; PULSE 78; RESP 18; TEMP 98.7; BMI 23.0
[2022-08-06] MEDS ORDERED: ACETAMINOPHEN 500 MG TABLET (FP) PO ONE (21:06)
[2022-08-06] MEDS ORDERED: ACETAMINOPHEN 500 MG TABLET (FP) ONE ×2 (21:11→21:25)
== END 2022-08-06 21:18 | disposition home or self-care (01) ==
LOC: FER 20:32
DX: S00.03XA Contusion of scalp, initial encounter (principal); F41.9 Anxiety disorder, unspecified; W22.8XXA Striking against or struck by other objects, initial encounter
CPT/HCPCS: 99283-25

== ENCOUNTER 2022-08-13 00:38 | Emergency (ER) | payer BC ==
[2022-08-13 00:54] VITALS: BP 141/74; PULSE 58; RESP 18; TEMP 97.9; BMI 19.5
== END 2022-08-13 04:45 | disposition home or self-care (01) ==
LOC: JER 00:38
DX: R07.9 Chest pain, unspecified (principal); F41.9 Anxiety disorder, unspecified
CPT/HCPCS: 93005; 93010; 99283-25

== ENCOUNTER 2023-09-26 15:14 | Emergency (ER) | payer OTHER ==
[2023-09-26 15:31] VITALS: BP 120/55; PULSE 64; RESP 16; TEMP 97.6; BMI 21.0
== END 2023-09-26 17:35 | disposition home or self-care (01) ==
LOC: JER 15:14 → JERFT 15:14
DX: R06.02 Shortness of breath (principal)
CPT/HCPCS: 71046-TC-FY; 99283-25

== ENCOUNTER 2023-10-05 14:52 | Emergency (ER) | payer OTHER ==
[2023-10-05 15:06] VITALS: BP 117/83; PULSE 78; RESP 18; TEMP 97.5; BMI 22.2
== END 2023-10-05 15:30 | disposition home or self-care (01) ==
LOC: JERFT 14:52
DX: S80.211A Abrasion, right knee, initial encounter (principal); X58.XXXA Exposure to other specified factors, initial encounter
CPT/HCPCS: 99283-25

== ENCOUNTER 2023-10-07 13:53 | Emergency (ER) | payer OTHER ==
[2023-10-07 13:59] VITALS: BP 123/71; PULSE 76; RESP 18; TEMP 98; BMI 22.2
== END 2023-10-07 15:01 | disposition home or self-care (01) ==
LOC: JERFT 13:53
DX: L03.115 Cellulitis of right lower limb (principal); S80.211A Abrasion, right knee, initial encounter; X58.XXXA Exposure to other specified factors, initial encounter
CPT/HCPCS: 99283-25

== ENCOUNTER 2023-10-24 15:10 | Emergency (ER) | payer OTHER ==
[2023-10-24 15:24] VITALS: BP 108/62; PULSE 74; RESP 18; TEMP 97.8; BMI 22.2
[2023-10-24] MEDS ORDERED: MAG HYDROX/AL HYDROX/SIMETH 30 ML UNIT-DOSE CUP ONE (16:20)
[2023-10-24] MEDS: MAG HYDROX/AL HYDROX/SIMETH 30 ML UNIT-DOSE CUP PO ONE (16:22)
[2023-10-24] MEDS ORDERED: PANTOPRAZOLE 40 MG TABLET PO ONE (17:32)
[2023-10-24] MEDS: PANTOPRAZOLE 40 MG TABLET PO ONE (17:38)
== END 2023-10-24 18:05 | disposition home or self-care (01) ==
LOC: JER 15:10
DX: G44.319 Acute post-traumatic headache, not intractable (principal); W22.8XXA Striking against or struck by other objects, initial encounter
CPT/HCPCS: 70450-TC; 99284-25

== ENCOUNTER 2023-11-05 15:57 | Emergency (ER) | payer OTHER ==
[2023-11-05 16:06] VITALS: BP 107/60; PULSE 77; RESP 18; TEMP 98; BMI 23.6
[2023-11-05] MEDS: ACETAMINOPHEN 500 MG TABLET (FP) PO ONE (16:36)
== END 2023-11-05 18:13 | disposition home or self-care (01) ==
LOC: JERFT 15:57 → JER 15:57 → JERFT 18:13
DX: S09.90XA Unspecified injury of head, initial encounter (principal); R51.9 Headache, unspecified; W22.8XXA Striking against or struck by other objects, initial encounter
CPT/HCPCS: 70450-TC; 72125-TC; 99284-25

== ENCOUNTER 2023-11-12 22:04 | Emergency (ER) | payer OTHER ==
[2023-11-12 22:15] VITALS: BP 111/72; PULSE 55; RESP 18; TEMP 98.3; BMI 23.6
== END 2023-11-12 23:15 | disposition home or self-care (01) ==
LOC: JER 22:04
DX: R10.9 Unspecified abdominal pain (principal)
CPT/HCPCS: 99282-25

== ENCOUNTER 2024-02-06 15:22 | Emergency (ER) | payer OTHER ==
[2024-02-06 15:37] VITALS: BP 128/77; PULSE 73; RESP 18; TEMP 97.6; BMI 21.5
== END 2024-02-06 16:47 | disposition home or self-care (01) ==
LOC: JERFT 15:22
DX: R19.7 Diarrhea, unspecified (principal)
CPT/HCPCS: 82962; 99283-25

== ENCOUNTER 2024-02-25 16:31 | Emergency (ER) | payer OTHER ==
[2024-02-25 16:54] VITALS: BP 113/66; PULSE 80; RESP 18; TEMP 98.2; BMI 29.0
== END 2024-02-25 18:48 | disposition home or self-care (01) ==
LOC: JERFT 16:31
DX: S50.11XA Contusion of right forearm, initial encounter (principal); X58.XXXA Exposure to other specified factors, initial encounter
CPT/HCPCS: 93971; 99284-25

== ENCOUNTER 2024-05-03 13:33 | Emergency (ER) | payer OTHER ==
[2024-05-03 13:46] VITALS: BP 106/58; PULSE 72; RESP 18; TEMP 97; BMI 24.7
[2024-05-03] MEDS: IBUPROFEN 600 MG TABLET (FP) PO ONE (14:16)
[2024-05-03] MEDS: ACETAMINOPHEN 500 MG TABLET (FP) PO ONE (14:16)
[2024-05-03] MEDS ORDERED: IBUPROFEN 600 MG TABLET (FP) PO ONE (14:17)
[2024-05-03] MEDS ORDERED: ACETAMINOPHEN 500 MG TABLET (FP) ONE (14:17)
== END 2024-05-03 14:30 | disposition home or self-care (01) ==
LOC: JERFT 13:33 → JER 13:33 → JERFT 14:30
DX: S09.90XA Unspecified injury of head, initial encounter (principal); W22.8XXA Striking against or struck by other objects, initial encounter
CPT/HCPCS: 99283-25

== ENCOUNTER 2024-08-07 17:39 | Emergency (ER) | payer OTHER ==
[2024-08-07 18:01] VITALS: BP 126/75; PULSE 71; RESP 20; TEMP 98.1; BMI 22.4
[2024-08-07] MEDS ORDERED: ACETAMINOPHEN 325 MG TABLET (FP) ONE (18:13)
[2024-08-07] MEDS: ACETAMINOPHEN 500 MG TABLET (FP) PO ONE (18:19)
== END 2024-08-07 20:45 | disposition home or self-care (01) ==
LOC: JER 17:39
DX: S00.03XA Contusion of scalp, initial encounter (principal); M54.2 Cervicalgia; M25.522 Pain in left elbow; Y04.8XXA Assault by other bodily force, initial encounter
CPT/HCPCS: 70450-TC; 72125-TC; 99284-25

== ENCOUNTER 2024-09-11 14:50 | Emergency (ER) | payer OTHER ==
[2024-09-11 15:10] VITALS: BP 106/63; PULSE 65; RESP 16; TEMP 97.6; BMI 22.2
== END 2024-09-11 17:53 | disposition home or self-care (01) ==
LOC: JER 14:50
DX: S09.90XA Unspecified injury of head, initial encounter (principal); W19.XXXA Unspecified fall, initial encounter
CPT/HCPCS: 70450-TC; 72125-TC; 99284-25

== ENCOUNTER 2024-11-01 14:01 | Emergency (ER) | payer OTHER ==
[2024-11-01 14:07] VITALS: BP 136/70; PULSE 75; RESP 20; TEMP 98.2; BMI 22.9
[2024-11-01] MEDS ORDERED: MAG HYDROX/AL HYDROX/SIMETH 30 ML UNIT-DOSE CUP ONE (14:39)
[2024-11-01] MEDS: MAG HYDROX/AL HYDROX/SIMETH 30 ML UNIT-DOSE CUP PO ONE (14:40)
== END 2024-11-01 15:02 | disposition home or self-care (01) ==
LOC: JERFT 14:01 → JER 14:01 → JERFT 15:02
DX: R05.9 Cough, unspecified (principal); J06.9 Acute upper respiratory infection, unspecified; R09.3 Abnormal sputum
CPT/HCPCS: 71046-TC-FY; 99283-25

== ENCOUNTER 2024-12-28 13:55 | Emergency (ER) | payer OTHER ==
[2024-12-28 14:09] VITALS: BP 112/59; PULSE 67; RESP 20; TEMP 98; BMI 22.2
== END 2024-12-28 16:03 | disposition home or self-care (01) ==
LOC: JERFT 13:55
DX: S89.91XA Unspecified injury of right lower leg, initial encounter (principal); W22.03XA Walked into furniture, initial encounter
CPT/HCPCS: 71046-TC-FY; 73560-TC-RT-FY; 99284-25

== ENCOUNTER 2025-01-16 15:47 | Emergency (ER) | payer OTHER ==
[2025-01-16 16:04] VITALS: BP 129/77; PULSE 62; RESP 16; TEMP 97.6; BMI 49.0
[2025-01-16 16:46] LABS: ABSOLUTE IMMATURE GRANULOCYTES 0.02 x10^3/uL (0.0-0.031); BASOPHILS # 0.06 x10^3/uL (0.01-0.08); EOSINOPHIL % 2.2 % (0.8-7.0); HEMATOCRIT 30.4 % (40.1-51.0); HEMOGLOBIN 9.1 g/dL (13.7-17.5); MCHC 29.9 g/dl (32.3-36.5); MEAN CELL VOLUME 75.4 fl (79.0-92.2); MEAN PLT VOLUME 9.2 fl (9.4-12.4); MONOCYTE # 0.38 x10^3/uL (0.30-0.82); MONOCYTE % 8.5 % (5.3-12.2); PLATELET COUNT 244 x10^3/uL (163-337); RDW 17.1 % (12.2-16.4)
[2025-01-16 17:03] LABS: POTASSIUM 4.2 mmol/L (3.5-5.1)
[2025-01-16 17:05] LABS: CALCIUM 9.1 mg/dL (8.5-10.1)
[2025-01-16 17:06] LABS: ALBUMIN 3.7 g/dl (3.4-5.0); BLOOD UREA NITROGEN 3.2 mg/dL (7-18); INR 0.96 (0.83-1.09); PROTHROMBIN TIME (PATIENT) 10.6 SEC (9.7-13.0)
[2025-01-16 17:09] LABS: CREATININE 0.9 mg/dL (0.55-1.3)
[2025-01-16 17:10] LABS: BILIRUBIN,TOTAL 0.2 mg/dL (0.2-1); TOT PROT 6.1 g/dl (6.4-8.2)
== END 2025-01-16 19:28 | disposition home or self-care (01) ==
LOC: JER 15:47
DX: R07.9 Chest pain, unspecified (principal)
CPT/HCPCS: 36415; 71045-TC-FY; 80053; 84484; 85025; 85610; 85730; 93005; 93010; 99285-25

== ENCOUNTER 2025-02-26 13:14 | Day surgery (SDC) | payer OTHER ==
[2025-02-26] MEDS: IRON SUCROSE INJECTION 300 MG in SODIUM CHLORIDE 250 ML IVPB ONE (13:32)
[2025-02-26 16:18] VITALS: TEMP 97.6
[2025-02-26 16:21] VITALS: BP 114/76; PULSE 61; RESP 20
== END 2025-02-26 15:30 | disposition home or self-care (01) ==
LOC: JONCCHEMO 13:14 → J7W 13:15 → JONCCHEMO 15:30
PROVIDERS: ATTEND Internal Medicine Hematology & Oncology
PROC: 3E033GC Introduction of Other Therapeutic Substance into Peripheral Vein, Percutaneous Approach (ICD-10-PCS; principal; 2025-02-26)
DX: D50.9 Iron deficiency anemia, unspecified (principal)
CPT/HCPCS: 96365; J1756

== ENCOUNTER 2025-03-19 13:36 | Day surgery (SDC) | payer OTHER ==
[~2025-03-19 13:36] MED LIST: IRON SUCROSE INJECTION 300 MG in SODIUM CHLORIDE 250 ML IVPB ONE
[2025-03-19] MEDS: IRON SUCROSE INJECTION 300 MG in SODIUM CHLORIDE 250 ML IVPB ONE (13:53)
[2025-03-19 17:12] VITALS: RESP 20; TEMP 98.5
[2025-03-19 17:16] VITALS: BP 118/76; PULSE 61
== END 2025-03-19 15:15 | disposition home or self-care (01) ==
LOC: JONCCHEMO 13:36
PROVIDERS: ATTEND Internal Medicine Hematology & Oncology
PROC: 3E033GC Introduction of Other Therapeutic Substance into Peripheral Vein, Percutaneous Approach (ICD-10-PCS; principal; 2025-03-19)
DX: E61.1 Iron deficiency (principal)
CPT/HCPCS: 96365; J1756

== ENCOUNTER 2025-04-27 14:48 | Emergency (ER) | payer OTHER ==
[2025-04-27 14:59] VITALS: BP 119/75; PULSE 83; RESP 20; TEMP 97.7; BMI 22.2
== END 2025-04-27 15:39 | disposition home or self-care (01) ==
LOC: JER 14:48
DX: R06.02 Shortness of breath (principal)
CPT/HCPCS: 71046-TC-FY; 99283-25